=== PATIENT | female | born 1945 | race Caucasian/White ===

== ENCOUNTER 2016-10-05 10:17 | Outpatient (CLI) | payer OTHER ==
[~2016-10-05 10:17] MED LIST: KLOR-CON 1010 MEQ PO; LASIX40 MG PO; LITHIUM CARBON300 M1 PO; NAPROSYN250 MG PO; NEURONTIN100 MG PO; PROZAC20 MG PO; SYNTHROID100 MCG PO; TRAZODONE HCL50 MG PO; VICODIN EQUIVAL1 TAB PO; XANAX0.5 MG PO
== END 2016-10-05 23:00 ==
LOC: RT SRH 10:17
DX: Z01.818 Encounter for other preprocedural examination (principal)